=== PATIENT | male | born 1970 ===

== ENCOUNTER 2021-11-21 00:45 | Emergency (ER) | payer SELFPAY ==
[2021-11-21] MEDS ORDERED: Acetaminophen 500 MG TAB ONE ×2 (01:32→01:33)
== END 2021-11-21 02:37 | disposition home or self-care (01) ==
LOC: MADERS 00:45
DX: J10.1 Influenza due to other identified influenza virus with other respiratory manifestations (principal); I10 Essential (primary) hypertension
CPT/HCPCS: 71046; 87804